=== PATIENT | female | born 1975 | race Caucasian/White ===

== ENCOUNTER 2020-05-10 08:15 | Inpatient (IN) | payer SELFPAY ==
[2020-05-10] MEDS ORDERED: Magnesium 2 GM/50 ML BAG (IN WATER) ONE (08:40)
[2020-05-10] MEDS ORDERED: methylPREDNISolone Sod Succ/PF 125 MG/2 ML VIAL ONE (08:40)
[2020-05-10] MEDS ORDERED: Acetaminophen 500 MG TAB ONE (08:40)
[2020-05-10] MEDS ORDERED: Promethazine HCl 25 MG/ML VIAL ONE (08:40)
[2020-05-10] MEDS ORDERED: diphenhydrAMINE 50 MG/ML VIAL ONE (08:40)
[2020-05-10] MEDS ORDERED: Ondansetron PF 4 MG/2 ML Vial IVP PRN (12:00)
[2020-05-10] MEDS ORDERED: Acetaminophen 325 MG TAB PO PRN (12:00)
[2020-05-10] MEDS ORDERED: SUMAtriptan Succinate 50 MG TAB PO PRN (12:14)
--- NOTE | 2020-05-10 12:16 | PDOC.HHP ---
Hospitalist HPI - History of Present Illness Headache History of Present Illness: 43-year-old woman who alleges a past medical history of multiple sclerosis not on any medication, fibromyalgia on tizanidine, history of migraine headaches, last episode she states 5 years ago presented emergency department with a complaint of severe migraine headaches of 2 and half weeks duration. Patient was seen at [facility] for her complaint. She was given a dose of hydromorphone which did not relieve her pain. She was therefore transferred here to be hospitalized for further management. Patient reports receiving Aimovig and Nurtec for migraine headaches in her physician's office which has not relieved her pain. Images of the head have been negative per report. Patient rated her headache as 10/10 when I saw her in the ED. She mention her headache is associated with nausea and photophobia. She was given a dose of IV magnesium and IV steroid in the ED. She denies any neck stiffness. She is hospitalized for further management of intractable migraine. Hospitalist ROS - Review of Systems Constitutional: denies: fever ENT: denies: ear pain, ear discharge Respiratory: denies: cough, shortness of breath Cardiovascular: denies: chest pain, palpitations Gastrointestinal: denies: vomiting, abdominal pain, diarrhea Genitourinary: denies: dysuria Musculoskeletal: denies: neck pain Skin: denies: rash Hospitalist History - Past Medical History ROW BOSS HOEING: reports: Migraine. denies: Seizure Gastrointestinal: reports: GERD Other Medical History: Fibromyalgia Multiple sclerosis. - Past Surgical History Other Surgical History: Breast augmentation surgery. Cholecystectomy. - Family History Family History: reports: cardiac disorder (Father of [place]) - Social History Smoking Status: Never smoker Alcohol: reports: None Drugs: reports: none - Exam General Appearance: NAD, awake alert Eye: PERRL, anicteric sclera ENT: normocephalic atraumatic, moist mucosa Neck: supple, symmetric, no JVD Heart: RRR, no murmur, normal peripheral pulses Respiratory: CTAB, no wheezes, no rales Gastrointestinal: soft, non-tender, non-distended, normal bowel sounds Extremities: no cyanosis, no edema Skin: normal turgor, no lesions, no rashes Neurological: cranial nerve grossly intact, no weakness, no focal deficits Musculoskeletal: normal tone, normal strength Psychiatric: normal affect, normal behavior, A&O x 3 Hospitalist H&P A/P - Problem (1) Intractable migraine Code(s): G43.919 - MIGRAINE, UNSP, INTRACTABLE, WITHOUT STATUS MIGRAINOSUS Status: Acute (2) Fibromyalgia Status: Acute (3) Multiple sclerosis Code(s): G35 - MULTIPLE SCLEROSIS Status: Acute - Plan Plan: Placed under observation. Will treat migraine headache with a trial of IV opioid, Fioricet and sumatriptan. Hydrate with IV normal saline. Per report her work-up in [facility] was unremarkable. Consult to neurology. Monitor BMP and CBC and optimize electrolytes MRI of the brain if symptoms persist.
[2020-05-10 12:18] VITALS: BMI 27.4
[2020-05-10] MEDS: HYDROcodone/Acetaminophen 5/325 mg Tablet PO PRN ×3 (12:36→21:27)
[2020-05-10] MEDS: Sodium Chloride 0.9% 1,000 ML IV SCH ×2 (12:37→20:52)
[2020-05-10] MEDS: HYDROmorphone 0.5 MG/0.5 ML SYRINGE SLOW IVP PRN ×2 (13:31→18:47)
[2020-05-10] MEDS: Fioricet 325/50/40 mg Tablet PO PRN (20:50)
[2020-05-10] MEDS: Famotidine/PF 20 mg/2ml Vial SLOW IVP SCH (20:50)
[2020-05-10] MEDS: Promethazine HCl 12.5 MG in Sodium Chloride 0.9% 50 ML IVPB PRN (21:24)
[2020-05-11] MEDS: HYDROcodone/Acetaminophen 5/325 mg Tablet PO PRN ×6 (01:01→20:26)
[2020-05-11] MEDS: Promethazine HCl 12.5 MG in Sodium Chloride 0.9% 50 ML IVPB PRN ×2 (05:24→11:33)
[2020-05-11] MEDS: Sodium Chloride 0.9% 1,000 ML IV SCH ×2 (06:50→15:06)
[2020-05-11] MEDS: Enoxaparin Sodium 40 MG/0.4 ML SYRINGE SC SCH (08:36)
[2020-05-11] MEDS: Famotidine/PF 20 mg/2ml Vial SLOW IVP SCH ×2 (08:36→20:27)
[2020-05-11 09:20] LABS: #Lymphocytes 1.9 thou/uL (1.20-3.40); #Monocytes 0.4 thou/uL (0.11-0.59); #Neutrophils 4.1 thou/uL (1.40-6.50); %Basophils 0.8 % (0.0-1.0); %Eosinophils 0.1 % (0.0-10.0); %Lymphocytes 29.7 % (21.0-51.0); %Monocytes 5.7 % (0.0-10.0); %Neutrophils 63.8 % (42.0-75.0); Hemoglobin 12.6 g/dL (12.0-16.0); Mean Corpuscular HGB CONC 33.3 g/dL (32.0-36.0); Mean Corpuscular Hemoglobin 29.2 pg (27.0-31.0); Mean Corpuscular Volume 87.8 fL (78.0-98.0); Mean Platelet Volume 8.4 fL (7.4-10.4); Platelet Count 179 thou/uL (130-400); RBC Distribution Width 12.1 % (11.5-14.5); Red Blood Cell (RBC) Count 4.33 mill/uL (4.20-5.40); White Blood Cell (WBC) Count 6.5 thou/uL (4.8-10.8)
[2020-05-11 09:44] LABS: Anion Gap 13 mmol/L (10-20); BUN (Urea Nitrogen) 12 mg/dL (7.0-18.7); Calc. Creatinine Clearance 106 mL/min (70-130); Calcium 8.7 mg/dL (7.8-10.44); Carbon Dioxide 26 mmol/L (22-29); Chloride 107 mmol/L (98-107); Glucose 78 mg/dL (70-105); Sodium 142 mmol/L (136-145)
[2020-05-11] MEDS ORDERED: Dexamethasone 10 MG/ML VIAL SLOW IVP SCH (12:15)
--- NOTE | 2020-05-11 12:28 | PDOC.HOSPP ---
- Subjective Encounter Date: 05/11/20 Encounter Time: 12:00 Subjective: f/u for intractable migraine headache treated with Sumatriptan/Phenergan/Dilaudid/Fioricet/IVF's. Pt states she does not feel any better with CAMERON. + photophobia and poor appetite. - Objective Vital Signs & Weight: Vital Signs (12 hours) Temp Pulse Resp BP Pulse Ox 05/11/20 10:33 98.2 F 79 16 122/76 99 05/11/20 07:35 98.4 F 74 16 106/73 94 L 05/11/20 04:29 98.2 F 77 18 111/75 97 05/11/20 00:27 98.7 F 69 14 101/62 98 Weight Weight 160 lb I&O: 05/10/20 05/11/20 05/12/20 06:59 06:59 06:59 Intake Total 3671 Balance 3671 Result Diagrams: 05/11/20 09:10 05/11/20 09:10 Hospitalist ROS - Medication Medications: Active Medications Generic Name Dose Route Start Last Admin Trade Name Freq PRN Reason Stop Dose Admin Acetaminophen/Butalbital/Caffeine 1 tab 05/10/20 12:00 05/10/20 20:50 Fioricet 325/50/40 Mg Tablet PO 05/15/20 12:01 1 tab Q4H PRN Administration Headache Hydrocodone Bitart/Acetaminophen 1 tab 05/10/20 12:00 05/11/20 08:35 Hydrocodone/Acetaminophen 5/325 Mg Tablet PO 1 tab Q4H PRN Administration Moderate Pain (4-6) Enoxaparin Sodium 40 mg 05/11/20 09:00 05/11/20 08:36 Enoxaparin Sodium 40 Mg/0.4 Ml Syringe SC Not Given 0900 KEO Famotidine 20 mg 05/10/20 21:00 05/11/20 08:36 Famotidine/Pf 20 Mg/2ml Vial SLOW IVP 20 mg Q12HR KEO Administration Sodium Chloride 1,000 mls @ 100 mls/hr 05/10/20 12:00 05/11/20 06:50 Normal Saline 0.9% IV 1,000 mls .Q10H KEO Administration Ondansetron HCl 4 mg 05/10/20 12:00 05/10/20 18:51 Ondansetron Pf 4 Mg/2 Ml Vial IVP 4 mg Q6H PRN Administration Nausea/Vomiting Sodium Chloride 10 ml 05/10/20 21:00 05/11/20 09:28 Flush - Normal Saline 10 Ml Syringe IVF Not Given Q12HR KEO - Exam General Appearance: NAD, awake alert Eye: PERRL, anicteric sclera ENT: normocephalic atraumatic, no oropharyngeal lesions Neck: supple, symmetric, no JVD, no thyromegaly, no lymphadenopathy Heart: RRR, no murmur, no gallops, no rubs, normal peripheral pulses Heart - other findings: S1, S2 Respiratory: CTAB, no wheezes, no rales, no ronchi, normal chest expansion, no tachypnea Gastrointestinal: soft, non-tender, non-distended, normal bowel sounds, no palpable masses Extremities: no cyanosis, no clubbing, no edema Skin: normal turgor, no lesions Neurological: cranial nerve grossly intact, no new deficit Musculoskeletal: normal tone, normal strength, no muscle wasting Psychiatric: normal affect, A&O x 3 Hosp A/P (1) Intractable migraine Code(s): G43.919 - MIGRAINE, UNSP, INTRACTABLE, WITHOUT STATUS MIGRAINOSUS Status: Acute Plan: Persistent, start Metoclopramide/Dexamethasone/Benadryl/IVF's, continue Sumatri ptan/Fioricet, Neurology consult pending (2) Nausea Code(s): R11.0 - NAUSEA Status: Acute Plan: Continue Reglan/IVF's (3) Fibromyalgia Status: Chronic (4) Multiple sclerosis Code(s): G35 - MULTIPLE SCLEROSIS Status: Chronic - Plan out of bed/ambulate, DVT proph w/SCDs Stable currently Start Reglan 10mg IV x 1 now Start Bendadryl 25mg IV x 1 now Start Dexamethasone 10mg IV x 1 now Continue IVF's Continue Sumatriptan/Fioricet Neurology consult pending
[2020-05-11] MEDS: diphenhydrAMINE 50 MG/ML VIAL IVP PRN ×2 (13:09→22:00)
[2020-05-11] MEDS: Metoclopramide HCl 10 MG/2 ML VIAL IVP SCH ×2 (14:01→21:59)
[2020-05-11] MEDS: Fioricet 325/50/40 mg Tablet PO PRN (15:04)
[2020-05-11] MEDS ORDERED: Temazepam 15 MG CAP PO PRN (19:09)
[2020-05-12] MEDS: Sodium Chloride 0.9% 1,000 ML IV SCH ×3 (00:29→23:05)
[2020-05-12] MEDS: HYDROcodone/Acetaminophen 5/325 mg Tablet PO PRN ×4 (03:10→17:00)
[2020-05-12] MEDS: Metoclopramide HCl 10 MG/2 ML VIAL IVP SCH ×3 (06:27→23:02)
[2020-05-12] MEDS: diphenhydrAMINE 50 MG/ML VIAL IVP PRN ×2 (06:27→14:28)
[2020-05-12] MEDS: Famotidine/PF 20 mg/2ml Vial SLOW IVP SCH ×2 (07:50→20:22)
[2020-05-12] MEDS: Enoxaparin Sodium 40 MG/0.4 ML SYRINGE SC SCH ×2 (07:51→07:53)
--- NOTE | 2020-05-12 16:58 | CON ---
NEUROLOGY CONSULTATION DATE OF CONSULTATION: 05/12/2020 REASON FOR CONSULTATION: Intractable migraine. HISTORY OF PRESENT ILLNESS: Ms. Park is a 44-year-old female with medical history significant for multiple sclerosis, not on any medication, fibromyalgia on tizanidine, history of migraine headaches which followed by car painter in [place], presented with severe migraine for two and a half weeks duration. The patient was seen by the medical information specialist at [facility] for this complaint and was given a dose of hydromorphone which did not relieve her pain. She was transferred here for further management. The patient has received Aimovig and Nurtec for migraine headaches in the physician's office, which did not relieve the headache. Imaging of the head has been reported negative per report. The patient rates her headache as 10/10 all over the head with nausea and vomiting. She was given a dose of magnesium and steroids and admitted for further evaluation. The patient denies any focal weakness. She denies any neck weakness, focal weakness, focal paresthesias, chest pain, abdominal pain, recent illness or recent exposure to COVID. REVIEW OF SYSTEMS: All systems reviewed and were negative except the pertinent positives and negatives mentioned in the HPI. PAST MEDICAL HISTORY: Chronic migraine, GERD, multiple sclerosis, fibromyalgia. PAST SURGICAL HISTORY: Breast augment surgery, cholecystectomy. FAMILY HISTORY: Father of cardiac disease. SOCIAL HISTORY: Denies smoking, alcohol, illegal drug use. ALLERGIES: Toradol, cephalexin and sulfa drugs Vital Signs & Weight: Vital Signs (12 hours) Temp Pulse Resp BP Pulse Ox 05/12/20 15:37 98.1 F 67 14 113/73 98 05/12/20 11:26 98.3 F 57 L 14 124/83 97 05/12/20 08:00 100 05/12/20 07:10 98.2 F 72 16 118/77 97 Weight Weight 160 lb I&O: 05/11/20 05/12/20 05/13/20 06:59 06:59 06:59 Intake Total 3671 3493 Balance 3671 3492 Active Medications Generic Name Dose Route Start Last Admin Trade Name Freq PRN Reason Stop Dose Admin Acetaminophen/Butalbital/Caffeine 1 tab 05/10/20 12:00 05/11/20 15:04 Fioricet 325/50/40 Mg Tablet PO 05/15/20 12:01 1 tab Q4H PRN Administration Headache Hydrocodone Bitart/Acetaminophen 1 tab 05/10/20 12:00 05/12/20 11:29 Hydrocodone/Acetaminophen 5/325 Mg Tablet PO 1 tab Q4H PRN Administration Moderate Pain (4-6) Diphenhydramine HCl 25 mg 05/11/20 12:15 05/12/20 14:28 Diphenhydramine 50 Mg/Ml Vial IVP 25 mg Q6H PRN Administration Headache Enoxaparin Sodium 40 mg 05/11/20 09:00 05/12/20 07:53 Enoxaparin Sodium 40 Mg/0.4 Ml Syringe SC Not Given 0900 KEO Famotidine 20 mg 05/10/20 21:00 05/12/20 07:50 Famotidine/Pf 20 Mg/2ml Vial SLOW IVP 20 mg Q12HR KEO Administration Sodium Chloride 1,000 mls @ 100 mls/hr 05/10/20 12:00 05/12/20 14:23 Normal Saline 0.9% IV 1,000 mls .Q10H KEO Administration Metoclopramide HCl 10 mg 05/11/20 14:00 05/12/20 14:22 Metoclopramide Hcl 10 Mg/2 Ml Vial IVP 10 mg Q8HR KEO Administration Ondansetron HCl 4 mg 05/10/20 12:00 05/10/20 18:51 Ondansetron Pf 4 Mg/2 Ml Vial IVP 4 mg Q6H PRN Administration Nausea/Vomiting Sodium Chloride 10 ml 05/10/20 21:00 05/12/20 11:17 Flush - Normal Saline 10 Ml Syringe IVF Not Given Q12HR KEO Temazepam 30 mg 05/11/20 19:09 05/11/20 20:32 Temazepam 15 Mg Cap PO 30 mg HS PRN Administration Insomnia PHYSICAL EXAMINATION: General Appearance: NAD, awake alert Eye: PERRL, anicteric sclera ENT: normocephalic atraumatic, no oropharyngeal lesions Neck: supple, symmetric, no JVD, no thyromegaly, no lymphadenopathy Heart: RRR, no murmur, no gallops, no rubs, normal peripheral pulses Respiratory: CTAB, no wheezes, no rales, no ronchi Gastrointestinal: soft, non-tender, non-distended, normal bowel sounds, no palpable masses Extremities: no cyanosis, no clubbing, no edema Skin: normal turgor, no lesions Neurological: Mental Status: The patient is alert and oriented to person, place and time. Recent and remote memory intact. Fund of knowledge is appropriate. Speech is clear. Cranial nerves 2 through 12 intact. Motor, muscle tone and bulk are normal. Strength 5/5 bilaterally. Sensory intact. Cerebellar, finger-nose testing intact. Gait deferred due to patient's safety. DATA REVIEWED: Labs reviewed. Unremarkable ASSESSMENT AND PLAN: (1) Intractable migraine Code(s): G43.919 - MIGRAINE, UNSP, INTRACTABLE, WITHOUT STATUS MIGRAINOSUS Status: Acute (2) Nausea Code(s): R11.0 - NAUSEA Status: Acute (3) Fibromyalgia Status: Chronic (4) Multiple sclerosis Code(s): G35 - MULTIPLE SCLEROSIS Status: Chronic MsBertin Park is a 44-year-old female who was consulted for intractable migraine. She was given a trial of opiate, Fioricet, sumatriptan, which did not help. She is allergic to Toradol, but received Benadryl and Reglan. Consider migraine cocktail minus Toradol since she is allergic. Schedule doses for 24 hours and see if it aborts the headache. Compazine 10 mg IV every 6 hours x4 doses and Benadryl 25 mg IV every 6 hours x4 doses. Plan discussed with the patient and the nursing staff. Per t patient, she has a car painter in [place] and last time when she had this severe migraine, the pharmacologically induced coma was induced by propofol concerning getting records from [place] and her primary car painter input, Consider MRI of the brain because of persistent headache. Neuro checks every 4 hours. Continue home medications. Avoid narcotics as this is the cause of rebound headaches. Continue medical management per primary team. Case discussed in detail with the patient and the nursing staff. We will continue to follow. Thank you for the consult. Job ID: [id number] MTDD
[2020-05-12] MEDS ORDERED: diphenhydrAMINE 50 MG/ML VIAL IVP SCH (17:00)
--- NOTE | 2020-05-12 17:07 | PDOC.HOSPP ---
- Subjective Encounter Date: 05/12/20 Encounter Time: 16:50 Subjective: f/u for intractable migraine headaches treated with Reglan/Benadryl/Fioricet/Dexamethasone. c/o persistent CAMERON. - Objective Vital Signs & Weight: Vital Signs (12 hours) Temp Pulse Resp BP Pulse Ox 05/12/20 15:37 98.1 F 67 14 113/73 98 05/12/20 11:26 98.3 F 57 L 14 124/83 97 05/12/20 08:00 100 05/12/20 07:10 98.2 F 72 16 118/77 97 Weight Weight 160 lb I&O: 05/11/20 05/12/20 05/13/20 06:59 06:59 06:59 Intake Total 3671 3493 Balance 3671 3493 Result Diagrams: 05/11/20 09:10 05/11/20 09:10 Hospitalist ROS - Medication Medications: Active Medications Generic Name Dose Route Start Last Admin Trade Name Freq PRN Reason Stop Dose Admin Acetaminophen/Butalbital/Caffeine 1 tab 05/10/20 12:00 05/11/20 15:04 Fioricet 325/50/40 Mg Tablet PO 05/15/20 12:01 1 tab Q4H PRN Administration Headache Hydrocodone Bitart/Acetaminophen 1 tab 05/10/20 12:00 05/12/20 11:29 Hydrocodone/Acetaminophen 5/325 Mg Tablet PO 1 tab Q4H PRN Administration Moderate Pain (4-6) Diphenhydramine HCl 25 mg 05/11/20 12:15 05/12/20 14:28 Diphenhydramine 50 Mg/Ml Vial IVP 25 mg Q6H PRN Administration Headache Enoxaparin Sodium 40 mg 05/11/20 09:00 05/12/20 07:53 Enoxaparin Sodium 40 Mg/0.4 Ml Syringe SC Not Given 0900 KEO Famotidine 20 mg 05/10/20 21:00 05/12/20 07:50 Famotidine/Pf 20 Mg/2ml Vial SLOW IVP 20 mg Q12HR KEO Administration Sodium Chloride 1,000 mls @ 100 mls/hr 05/10/20 12:00 05/12/20 14:23 Normal Saline 0.9% IV 1,000 mls .Q10H KEO Administration Metoclopramide HCl 10 mg 05/11/20 14:00 05/12/20 14:22 Metoclopramide Hcl 10 Mg/2 Ml Vial IVP 10 mg Q8HR KEO Administration Ondansetron HCl 4 mg 05/10/20 12:00 05/10/20 18:51 Ondansetron Pf 4 Mg/2 Ml Vial IVP 4 mg Q6H PRN Administration Nausea/Vomiting Sodium Chloride 10 ml 05/10/20 21:00 05/12/20 11:17 Flush - Normal Saline 10 Ml Syringe IVF Not Given Q12HR KEO Temazepam 30 mg 05/11/20 19:09 05/11/20 20:32 Temazepam 15 Mg Cap PO 30 mg HS PRN Administration Insomnia - Exam General Appearance: NAD, awake alert Eye: PERRL, anicteric sclera ENT: normocephalic atraumatic, no oropharyngeal lesions Neck: supple, symmetric, no JVD, no thyromegaly, no lymphadenopathy Heart: RRR, no murmur, no gallops, no rubs, normal peripheral pulses Respiratory: CTAB, no wheezes, no rales, no ronchi Gastrointestinal: soft, non-tender, non-distended, normal bowel sounds, no palpable masses Extremities: no cyanosis, no clubbing, no edema Skin: normal turgor, no lesions Neurological: cranial nerve grossly intact, no new deficit Musculoskeletal: normal tone, normal strength, no muscle wasting Psychiatric: normal affect, A&O x 3 Hosp A/P (1) Intractable migraine Code(s): G43.919 - MIGRAINE, UNSP, INTRACTABLE, WITHOUT STATUS MIGRAINOSUS Status: Acute Plan: Persistent, trial of Compazine/Benadryl scheduled, continue Gabapentin/[place]/Fioricet (2) Nausea Code(s): R11.0 - NAUSEA Status: Acute Plan: Improved, continue Compazine/Reglan (3) Fibromyalgia Status: Chronic (4) Multiple sclerosis Code(s): G35 - MULTIPLE SCLEROSIS Status: Chronic - Plan out of bed/ambulate, DVT proph w/SCDs Stable currently Trial of scheduled Compazine/Benadryl Continue Gabapentin/Fioricet/[place] Continue IVF's Continue Sumatriptan Neurology consult appreciated
[2020-05-12] MEDS: Prochlorperazine 10 MG/2 ML VIAL IVP SCH ×2 (17:47→23:02)
[2020-05-12] MEDS: diphenhydrAMINE 50 MG/ML VIAL IVP SCH (20:23)
[2020-05-12] MEDS: Zolpidem Tartrate 5 MG TAB PO SCH (20:23)
[2020-05-12] MEDS: tiZANidine HCl 4 MG TAB PO SCH (20:23)
[2020-05-12] MEDS: Lorazepam 1 MG TAB PO SCH (20:24)
[2020-05-12] MEDS: Gabapentin 300 MG CAP PO SCH (20:26)
[2020-05-12] MEDS ORDERED: Non-Formulary Item 1 EACH (Zolpidem Tartrate [Ambien Cr] 12.5 MG Tab.Mphase) PO SCH (21:00)
[2020-05-12] MEDS ORDERED: Lorazepam 0.5 MG TAB PO SCH (21:00)
[2020-05-13] MEDS: diphenhydrAMINE 50 MG/ML VIAL IVP SCH ×4 (03:21→21:33)
[2020-05-13] MEDS: Prochlorperazine 10 MG/2 ML VIAL IVP SCH ×3 (05:26→17:05)
[2020-05-13] MEDS: Metoclopramide HCl 10 MG/2 ML VIAL IVP SCH ×3 (05:26→21:33)
[2020-05-13] MEDS: Famotidine/PF 20 mg/2ml Vial SLOW IVP SCH ×2 (08:51→21:32)
[2020-05-13] MEDS: tiZANidine HCl 4 MG TAB PO SCH ×3 (08:51→21:32)
[2020-05-13] MEDS: Gabapentin 300 MG CAP PO SCH ×3 (08:52→21:32)
[2020-05-13] MEDS: HYDROcodone/Acetaminophen 5/325 mg Tablet PO PRN ×3 (08:52→18:35)
[2020-05-13] MEDS: Enoxaparin Sodium 40 MG/0.4 ML SYRINGE SC SCH (08:53)
--- NOTE | 2020-05-13 14:05 | PDOC.NEUPN ---
- Subjective Encounter Date: 05/13/20 Subjective: Mrs Park continues to have headache but able to sleep with a combination of Benadryl and Compazine. - Objective Vital Signs & Weight: Vital Signs (12 hours) Temp Pulse Resp BP Pulse Ox 05/13/20 12:10 97.5 F L 52 L 16 103/68 99 05/13/20 08:06 98.4 F 62 18 118/80 97 05/13/20 03:18 97.6 F 47 L 14 112/74 100 Weight Weight 160 lb I&O: 05/12/20 05/13/20 05/14/20 06:59 06:59 06:59 Intake Total 3493 850 Balance 3493 850 Result Diagrams: 05/11/20 09:10 05/11/20 09:10 Radiology Reviewed by me: Yes EKG Reviewed by me: Yes ROS - Review of Systems Constitutional: denies: fever, chills, sweats, weakness, malaise, other Eyes: denies: pain, vision change, conjunctivae inflammation, eyelid inflammation, redness, other (headache) ENT: denies: ear pain, ear discharge, nose pain, nose discharge, nose congestion, mouth pain, mouth swelling, throat pain, throat swelling, other Respiratory: denies: cough, dry, shortness of breath, hemoptysis, SOB with excertion, pleuritic pain, sputum, wheezing, other Cardiovascular: denies: no pertinent history, AFIB, CAD, CHF, HTN, [place], Syncope, Hyperlipidemia, Mitral valve stenosis, Aortic stenosis, Valve insufficiency, Pulmonary hypertension, Other Gastrointestinal: denies: nausea, vomiting, abdominal pain, diarrhea, constipation, melena, hematochezia, other Musculoskeletal: denies: neck pain, shoulder pain, arm pain, back pain, hand pain, leg pain, foot pain, other Skin: denies: rash, lesions, nestor, bruising, other - Medication Medications: Active Medications Generic Name Dose Route Start Last Admin Trade Name Freq PRN Reason Stop Dose Admin Acetaminophen/Butalbital/Caffeine 1 tab 05/10/20 12:00 05/11/20 15:04 Fioricet 325/50/40 Mg Tablet PO 05/15/20 12:01 1 tab Q4H PRN Administration Headache Hydrocodone Bitart/Acetaminophen 1 tab 05/10/20 12:00 05/13/20 08:52 Hydrocodone/Acetaminophen 5/325 Mg Tablet PO 1 tab Q4H PRN Administration Moderate Pain (4-6) Diphenhydramine HCl 25 mg 05/11/20 12:15 05/12/20 14:28 Diphenhydramine 50 Mg/Ml Vial IVP 25 mg Q6H PRN Administration Headache Diphenhydramine HCl 25 mg 05/12/20 21:00 05/13/20 09:02 Diphenhydramine 50 Mg/Ml Vial IVP 05/13/20 15:01 25 mg Q6H KEO Administration Enoxaparin Sodium 40 mg 05/11/20 09:00 05/13/20 08:53 Enoxaparin Sodium 40 Mg/0.4 Ml Syringe SC Not Given 09 KEO Famotidine 20 mg 05/10/20 21:00 05/13/20 08:51 Famotidine/Pf 20 Mg/2ml Vial SLOW IVP 20 mg Q12HR KEO Administration Gabapentin 300 mg 05/12/20 21:00 05/13/20 08:52 Gabapentin 300 Mg Cap PO 300 mg TID KEO Administration Sodium Chloride 1,000 mls @ 100 mls/hr 05/10/20 12:00 05/12/20 23:05 Normal Saline 0.9% IV 1,000 mls .Q10H KEO Administration Lorazepam 0.5 mg 05/12/20 21:00 05/12/20 20:24 Lorazepam 1 Mg Tab PO 0.5 mg HS KEO Administration Metoclopramide HCl 10 mg 05/11/20 14:00 05/13/20 05:26 Metoclopramide Hcl 10 Mg/2 Ml Vial IVP 10 mg Q8HR KEO Administration Ondansetron HCl 4 mg 05/10/20 12:00 05/10/20 18:51 Ondansetron Pf 4 Mg/2 Ml Vial IVP 4 mg Q6H PRN Administration Nausea/Vomiting Pantoprazole Sodium 40 mg 05/13/20 09:00 05/13/20 08:51 Pantoprazole 40 Mg Tab PO 40 mg DAILY KEO Administration Sodium Chloride 10 ml 05/10/20 21:00 05/13/20 09:07 Flush - Normal Saline 10 Ml Syringe IVF 10 ml Q12HR KEO Administration Tizanidine HCl 6 mg 05/12/20 21:00 05/13/20 08:51 Tizanidine Hcl 4 Mg Tab PO 6 mg TID KEO Administration Zolpidem Tartrate 10 mg 05/12/20 21:00 05/12/20 20:23 Zolpidem Tartrate 5 Mg Tab PO 10 mg HS KEO Administration - Exam General Appearance: awake alert Eye: PERRL ENT: normocephalic atraumatic Neck: supple Respiratory: CTAB Cardiovascular: RRR Gastrointestinal: soft Extremities: no cyanosis, no clubbing Skin: normal turgor, no lesions Neurological: CN's grossly intact, normal sensation to touch, no weakness, no focal deficits, no new deficit Musculoskeletal: normal tone, normal strength, no muscle wasting PSYCH: normal affect, normal behavior, A&O x 3, oriented to person, oriented to place, oriented to time Results - Labs Result Diagrams: 05/11/20 09:10 05/11/20 09:10 Lab results: WBC 6.5 thou/uL (4.8-10.8) 05/11/20 09:10 Hgb 12.6 g/dL (12.0-16.0) 05/11/20 09:10 Hct 38.0 % (36.0-47.0) 05/11/20 09:10 MCV 87.8 fL (78.0-98.0) 05/11/20 09:10 Plt Count 179 thou/uL (130-400) 05/11/20 09:10 Neutrophils % 63.8 % (42.0-75.0) 05/11/20 09:10 Sodium 142 mmol/L (136-145) 05/11/20 09:10 Potassium 4.0 mmol/L (3.5-5.1) 05/11/20 09:10 Chloride 107 mmol/L (98-107) 05/11/20 09:10 Carbon Dioxide 26 mmol/L (22-29) 05/11/20 09:10 BUN 12 mg/dL (7.0-18.7) 05/11/20 09:10 Creatinine 0.76 mg/dL (0.6-1.1) 05/11/20 09:10 Glucose 78 mg/dL (70-105) 05/11/20 09:10 Calcium 8.7 mg/dL (7.8-10.44) 05/11/20 09:10 PN A/P (1) Intractable migraine Code(s): G43.919 - MIGRAINE, UNSP, INTRACTABLE, WITHOUT STATUS MIGRAINOSUS Status: Acute (2) Nausea Code(s): R11.0 - NAUSEA Status: Acute (3) Fibromyalgia Status: Chronic (4) Multiple sclerosis Code(s): G35 - MULTIPLE SCLEROSIS Status: Chronic - Plan Mrs Park continues to have headache but able to sleep with a combination of Benadryl and Compazine. She has failed multiple regimens. Continue Benadryl and Compazine x 4 scheduled doses for 24 hours. Neurochecks every 4 hours. Continue home medications Monitor blood pressure and blood glucose. Continue home medications. Consider primary house painter input since we have exhausted most options. Plan discussed in detail with the patient and the primary attending Dr. Valentin.
[2020-05-13] MEDS: Sodium Chloride 0.9% 1,000 ML IV SCH ×2 (15:54→17:11)
--- NOTE | 2020-05-13 19:20 | PDOC.HOSPP ---
- Subjective Encounter Date: 05/13/20 Encounter Time: 15:20 Subjective: f/u for intractable migraine [place]. Overall feels better with Compazine/Benadryl. Sleeping better. - Objective Vital Signs & Weight: Vital Signs (12 hours) Temp Pulse Resp BP Pulse Ox 05/13/20 14:35 97.6 F 80 16 117/81 98 05/13/20 12:10 97.5 F L 52 L 16 103/68 99 05/13/20 08:06 98.4 F 62 18 118/80 97 Weight Weight 160 lb I&O: 05/12/20 05/13/20 05/14/20 06:59 06:59 06:59 Intake Total 3493 850 1800 Balance 3493 850 1800 Result Diagrams: 05/11/20 09:10 05/11/20 09:10 Hospitalist ROS - Medication Medications: Active Medications Generic Name Dose Route Start Last Admin Trade Name Freq PRN Reason Stop Dose Admin Acetaminophen/Butalbital/Caffeine 1 tab 05/10/20 12:00 05/11/20 15:04 Fioricet 325/50/40 Mg Tablet PO 05/15/20 12:01 1 tab Q4H PRN Administration Headache Hydrocodone Bitart/Acetaminophen 1 tab 05/10/20 12:00 05/13/20 18:35 Hydrocodone/Acetaminophen 5/325 Mg Tablet PO 1 tab Q4H PRN Administration Moderate Pain (4-6) Diphenhydramine HCl 25 mg 05/11/20 12:15 05/12/20 14:28 Diphenhydramine 50 Mg/Ml Vial IVP 25 mg Q6H PRN Administration Headache Enoxaparin Sodium 40 mg 05/11/20 09:00 05/13/20 08:53 Enoxaparin Sodium 40 Mg/0.4 Ml Syringe SC Not Given 0900 KEO Famotidine 20 mg 05/10/20 21:00 05/13/20 08:51 Famotidine/Pf 20 Mg/2ml Vial SLOW IVP 20 mg Q12HR KEO Administration Gabapentin 300 mg 05/12/20 21:00 05/13/20 14:37 Gabapentin 300 Mg Cap PO 300 mg TID KEO Administration Sodium Chloride 1,000 mls @ 100 mls/hr 05/10/20 12:00 05/13/20 17:11 Normal Saline 0.9% IV 1,000 mls .Q10H KEO Administration Lorazepam 0.5 mg 05/12/20 21:00 05/12/20 20:24 Lorazepam 1 Mg Tab PO 0.5 mg HS KEO Administration Metoclopramide HCl 10 mg 05/11/20 14:00 05/13/20 14:39 Metoclopramide Hcl 10 Mg/2 Ml Vial IVP 10 mg Q8HR KEO Administration Ondansetron HCl 4 mg 05/10/20 12:00 05/10/20 18:51 Ondansetron Pf 4 Mg/2 Ml Vial IVP 4 mg Q6H PRN Administration Nausea/Vomiting Pantoprazole Sodium 40 mg 05/13/20 09:00 05/13/20 08:51 Pantoprazole 40 Mg Tab PO 40 mg DAILY KEO Administration Prochlorperazine Edisylate 10 mg 05/13/20 17:00 05/13/20 17:05 Prochlorperazine 10 Mg/2 Ml Vial IVP 05/14/20 11:01 10 mg 0500,1100,1700,2300 KEO Administration Sodium Chloride 10 ml 05/10/20 21:00 05/13/20 09:07 Flush - Normal Saline 10 Ml Syringe IVF 10 ml Q12HR KEO Administration Tizanidine HCl 6 mg 05/12/20 21:00 05/13/20 14:37 Tizanidine Hcl 4 Mg Tab PO 6 mg TID KEO Administration Zolpidem Tartrate 10 mg 05/12/20 21:00 05/12/20 20:23 Zolpidem Tartrate 5 Mg Tab PO 10 mg HS KEO Administration Hospitalist Exam Vitals: Vital Signs (12 hours) Temp Pulse Resp BP Pulse Ox 05/13/20 14:35 97.6 F 80 16 117/81 98 05/13/20 12:10 97.5 F L 52 L 16 103/68 99 05/13/20 08:06 98.4 F 62 18 118/80 97 Weight Weight 160 lb General Appearance: NAD, awake alert Eye: PERRL, anicteric sclera ENT: normocephalic atraumatic, no oropharyngeal lesions Neck: supple, symmetric, no JVD, no thyromegaly, no lymphadenopathy Heart: RRR, no murmur, no gallops, no rubs, normal peripheral pulses Heart - other findings: S1, S2 Respiratory: CTAB, no wheezes, no rales, no ronchi, normal chest expansion Gastrointestinal: soft, non-tender, non-distended, normal bowel sounds, no palpable masses Extremities: no cyanosis, no clubbing, no edema Skin: normal turgor, no lesions Neurological: cranial nerve grossly intact, no new deficit Musculoskeletal: normal tone, normal strength, no muscle wasting Psychiatric: normal affect, A&O x 3 Hosp A/P (1) Intractable migraine Code(s): G43.919 - MIGRAINE, UNSP, INTRACTABLE, WITHOUT STATUS MIGRAINOSUS Status: Acute Plan: Continue supportive mgmt, Compazine/Benadryl/Fioricet/Imitrex/Gabapentin (2) Nausea Code(s): R11.0 - NAUSEA Status: Acute Plan: Improved, antiemetics PRN (3) Fibromyalgia Status: Chronic (4) Multiple sclerosis Code(s): G35 - MULTIPLE SCLEROSIS Status: Chronic - Plan out of bed/ambulate, DVT proph w/SCDs Stable currently Trial of scheduled Compazine/Benadryl Continue Gabapentin/Fioricet/[place] Continue IVF's Continue Sumatriptan Neurology consult appreciated Likely home in 24h
[2020-05-13] MEDS: Lorazepam 1 MG TAB PO SCH (21:31)
[2020-05-13] MEDS: Zolpidem Tartrate 5 MG TAB PO SCH (21:36)
[2020-05-14] MEDS: Prochlorperazine 10 MG/2 ML VIAL IVP SCH ×3 (00:02→11:24)
[2020-05-14] MEDS: Sodium Chloride 0.9% 1,000 ML IV SCH ×3 (02:53→21:04)
[2020-05-14] MEDS: diphenhydrAMINE 50 MG/ML VIAL IVP SCH ×3 (02:53→14:28)
[2020-05-14] MEDS: Metoclopramide HCl 10 MG/2 ML VIAL IVP SCH ×3 (05:44→21:03)
[2020-05-14] MEDS: tiZANidine HCl 4 MG TAB PO SCH ×3 (08:51→21:03)
[2020-05-14] MEDS: Gabapentin 300 MG CAP PO SCH ×3 (08:52→21:02)
[2020-05-14] MEDS: Enoxaparin Sodium 40 MG/0.4 ML SYRINGE SC SCH (08:53)
[2020-05-14] MEDS: Famotidine/PF 20 mg/2ml Vial SLOW IVP SCH ×2 (08:53→21:02)
--- NOTE | 2020-05-14 17:19 | PDOC.HOSPP ---
- Subjective Encounter Date: 05/14/20 Encounter Time: 16:00 Subjective: f/u for intractable migraine [place]. Overall feels about the same. Appetite improving. - Objective Vital Signs & Weight: Vital Signs (12 hours) Temp Pulse Resp BP Pulse Ox 05/14/20 16:17 97.8 F 52 L 12 142/89 H 93 L 05/14/20 14:33 60 112/78 05/14/20 12:09 98.2 F 67 12 90/63 93 L 05/14/20 11:20 108/56 L 05/14/20 08:00 98.7 F 59 L 16 114/77 99 Weight Weight 160 lb I&O: 05/13/20 05/14/20 05/15/20 06:59 06:59 06:59 Intake Total 850 1800 Balance 850 1800 Result Diagrams: 05/11/20 09:10 05/11/20 09:10 Hospitalist ROS - Medication Medications: Active Medications Generic Name Dose Route Start Last Admin Trade Name Freq PRN Reason Stop Dose Admin Acetaminophen/Butalbital/Caffeine 1 tab 05/10/20 12:00 05/11/20 15:04 Fioricet 325/50/40 Mg Tablet PO 05/15/20 12:01 1 tab Q4H PRN Administration Headache Hydrocodone Bitart/Acetaminophen 1 tab 05/10/20 12:00 05/13/20 18:35 Hydrocodone/Acetaminophen 5/325 Mg Tablet PO 1 tab Q4H PRN Administration Moderate Pain (4-6) Diphenhydramine HCl 25 mg 05/11/20 12:15 05/12/20 14:28 Diphenhydramine 50 Mg/Ml Vial IVP 25 mg Q6H PRN Administration Headache Enoxaparin Sodium 40 mg 05/11/20 09:00 05/14/20 08:53 Enoxaparin Sodium 40 Mg/0.4 Ml Syringe SC Not Given 0900 KEO Famotidine 20 mg 05/10/20 21:00 05/14/20 08:53 Famotidine/Pf 20 Mg/2ml Vial SLOW IVP 20 mg Q12HR KEO Administration Gabapentin 300 mg 05/12/20 21:00 05/14/20 14:28 Gabapentin 300 Mg Cap PO 300 mg TID KEO Administration Sodium Chloride 1,000 mls @ 100 mls/hr 05/10/20 12:00 05/14/20 02:53 Normal Saline 0.9% IV 1,000 mls .Q10H KEO Administration Lorazepam 0.5 mg 05/12/20 21:00 05/13/20 21:31 Lorazepam 1 Mg Tab PO 0.5 mg HS KEO Administration Metoclopramide HCl 10 mg 05/11/20 14:00 05/14/20 14:28 Metoclopramide Hcl 10 Mg/2 Ml Vial IVP 10 mg Q8HR KEO Administration Ondansetron HCl 4 mg 05/10/20 12:00 05/10/20 18:51 Ondansetron Pf 4 Mg/2 Ml Vial IVP 4 mg Q6H PRN Administration Nausea/Vomiting Pantoprazole Sodium 40 mg 05/13/20 09:00 05/14/20 08:52 Pantoprazole 40 Mg Tab PO 40 mg DAILY KEO Administration Sodium Chloride 10 ml 05/10/20 21:00 05/14/20 08:53 Flush - Normal Saline 10 Ml Syringe IVF 10 ml Q12HR KEO Administration Tizanidine HCl 6 mg 05/12/20 21:00 05/14/20 14:28 Tizanidine Hcl 4 Mg Tab PO 6 mg TID KEO Administration Zolpidem Tartrate 10 mg 05/12/20 21:00 05/13/20 21:36 Zolpidem Tartrate 5 Mg Tab PO 10 mg HS KEO Administration Hospitalist Exam Vitals: Vital Signs (12 hours) Temp Pulse Resp BP Pulse Ox 05/14/20 16:17 97.8 F 52 L 12 142/89 H 93 L 05/14/20 14:33 60 112/78 05/14/20 12:09 98.2 F 67 12 90/63 93 L 05/14/20 11:20 108/56 L 05/14/20 08:00 98.7 F 59 L 16 114/77 99 Weight Weight 160 lb General Appearance: NAD, awake alert Eye: PERRL, anicteric sclera ENT: normocephalic atraumatic, no oropharyngeal lesions Neck: supple, symmetric, no JVD, no thyromegaly, no lymphadenopathy Heart: RRR, no murmur, no gallops, no rubs, normal peripheral pulses Heart - other findings: S1, S2 Respiratory: CTAB, no wheezes, no rales, no ronchi, normal chest expansion Gastrointestinal: soft, non-tender, non-distended, normal bowel sounds, no palpable masses Extremities: no cyanosis, no clubbing, no edema Skin: normal turgor, no lesions Neurological: cranial nerve grossly intact, no new deficit Musculoskeletal: normal tone, normal strength, no muscle wasting Psychiatric: normal affect, A&O x 3 Hosp A/P (1) Intractable migraine Code(s): G43.919 - MIGRAINE, UNSP, INTRACTABLE, WITHOUT STATUS MIGRAINOSUS Status: Acute Plan: Slow improvement, continue supportive mgmt (2) Nausea Code(s): R11.0 - NAUSEA Status: Acute Plan: Improved, antiemetics PRN (3) Fibromyalgia Status: Chronic (4) Multiple sclerosis Code(s): G35 - MULTIPLE SCLEROSIS Status: Chronic - Plan out of bed/ambulate, DVT proph w/SCDs Stable currently Trial of scheduled Compazine/Benadryl Continue Gabapentin/Fioricet/[place] Continue IVF's Continue Sumatriptan Neurology consult appreciated Likely home in 24h
[2020-05-14] MEDS: Zolpidem Tartrate 5 MG TAB PO SCH (21:03)
[2020-05-14] MEDS: Lorazepam 1 MG TAB PO SCH (21:03)
[2020-05-14] MEDS: HYDROcodone/Acetaminophen 5/325 mg Tablet PO PRN (21:25)
[2020-05-15] MEDS: Metoclopramide HCl 10 MG/2 ML VIAL IVP SCH (05:19)
[2020-05-15] MEDS: HYDROcodone/Acetaminophen 5/325 mg Tablet PO PRN (05:21)
[2020-05-15] MEDS: tiZANidine HCl 4 MG TAB PO SCH (07:52)
[2020-05-15] MEDS: Gabapentin 300 MG CAP PO SCH (07:52)
[2020-05-15] MEDS: Famotidine/PF 20 mg/2ml Vial SLOW IVP SCH (07:53)
[2020-05-15] MEDS: Sodium Chloride 0.9% 1,000 ML IV SCH (07:53)
[2020-05-15] MEDS: Enoxaparin Sodium 40 MG/0.4 ML SYRINGE SC SCH (07:53)
[2020-05-15 08:42] VITALS: BP 117/70; TEMP 98
--- NOTE | 2020-05-15 11:52 | DIS ---
DATE OF ADMISSION: 05/11/2020 DATE OF DISCHARGE: 05/15/2020 DISCHARGE DIAGNOSES: 1. Intractable migraine headache, resolving. 2. Nausea, secondarily to #1, resolved. 3. Fibromyalgia, chronic. 4. Multiple sclerosis. CONSULTATION: Dr. Carrasco with Neurology Service. PERTINENT LABORATORY AND X-RAY FINDINGS: Basic metabolic profile and CBC within normal limits. HOSPITAL COURSE: The patient was initially admitted after presenting with intractable migraine headache with associated nausea in the context of chronic migraines. The patient was placed on acute migraine protocol with slow clinical improvement. The patient was treated with multiple medications including Imitrex, Fioricet, [place], intravenous fluids, dexamethasone, and gabapentin. The patient was also placed on Compazine and Benadryl with overall resolution of her headache by the time of discharge. The patient was evaluated by the Neurology Service with recommendations for general supportive management. I have examined the patient at the time of discharge and discussed followup instructions. The patient verbalized understanding and agreement, ready for discharge on 05/15/2020. DISCHARGE MEDICATIONS: 1. Reglan 10 mg p.o. t.i.d. p.r.n. headache. 2. Fioricet one tablet p.o. q.4 hours p.r.n. headache. 3. Tizanidine 6 mg p.o. t.i.d. 4. Protonix 40 mg p.o. daily. 5. Lorazepam 0.5 mg p.o. at bedtime. 6. Gabapentin 300 mg p.o. t.i.d. 7. Ambien 12.5 mg p.o. at bedtime. FOLLOWUP: The patient may follow up with her primary care provider in [place]. CONDITION ON DISCHARGE: Stable. ACTIVITY: Ad-pilar. DIET: Regular. CODE STATUS: Full. DISPOSITION: To home on 05/15/2020. Total time preparing and coordinating discharge, 32 minutes. Job ID: [id number]
== END 2020-05-15 12:05 | disposition home or self-care (01) | DRG 103 ==
LOC: ERS 08:15 → SURG A 12:00 → OBSVTOIN 05-11 12:23
PROVIDERS: ADMIT Internal Medicine; ATTEND Family Medicine
DX: G43.919 Migraine, unspecified, intractable, without status migrainosus (principal); M79.7 Fibromyalgia; G35 Multiple sclerosis; K21.9 Gastro-esophageal reflux disease without esophagitis; Z90.49 Acquired absence of other specified parts of digestive tract; Z82.49 Family history of ischemic heart disease and other diseases of the circulatory system; Z88.2 Allergy status to sulfonamides; Z88.8 Allergy status to other drugs, medicaments and biological substances; Z79.899 Other long term (current) drug therapy
CPT/HCPCS: 36415; 36556; 80048; 85025; 96365; 96368; 96375; J0780; J1100; J1170; J1200; J1650; J2405; J2550; J2765; J2930; J3475; S0028